=== PATIENT | female | born 1990 | race Caucasian/White ===

== ENCOUNTER 2016-08-22 08:22 | Emergency (ER) | payer MEDICAID, SELFPAY ==
[2016-08-22] MEDS ORDERED: DIPH,PERTUSS(ACELL),TET VAC/PF 0.5 ML IM-VACC ONE (11:29)
[2016-08-24 14:55] LABS: DAU SCREEN DISCLAIMER
[2016-08-25 15:12] LABS: ASPARTATE AMINO TRANSFERASE 19 U/L (15-37); BLOOD UREA NITROGEN 12 mg/dL (7-18)
== END 2016-08-22 11:40 | disposition home or self-care (01) ==
LOC: ED 08:22
DX: S62.336A Displaced fracture of neck of fifth metacarpal bone, right hand, initial encounter for closed fracture (principal); S61.512A Laceration without foreign body of left wrist, initial encounter; F17.210 Nicotine dependence, cigarettes, uncomplicated; F12.180 Cannabis abuse with cannabis-induced anxiety disorder; W22.01XA Walked into wall, initial encounter; Y93.89 Activity, other specified; Y99.8 Other external cause status; Y92.89 Other specified places as the place of occurrence of the external cause
CPT/HCPCS: 29125; 36415; 80053; 80307; 84703; 85025; 99285